=== PATIENT | male | born 1950 | race Caucasian/White ===

== ENCOUNTER 2023-09-26 10:49 | Emergency (ER) | payer OTHER, SELFPAY ==
--- NOTE | 2023-09-26 11:33 | ED.GENMED ---
History of Present Illness
General
Chief Complaint: Facial Problem
Source: patient
Exam Limitations: none
Time Seen by Provider: 09/26/23 11:29
Travel History
Have you had any contact with someone who has COVID-19?: No
Do you have any symptoms of coronavirus? Fever > 100 degrees, chills, cough, shortness of breath, sore throat, loss of taste or smell, muscle aches, or headache?: No
History of Present Illness
History of Present Illness:
See MDM
Past History
Past History
ED Past Medical History: None
ED Past Surgical History: None
Social History
Tobacco: Non-smoker
Alcohol: None
Phy Exam
Physical Exam
Physical Exam:
See MDM
Course
Orders/Labs/Results
Orders:
Orders
09/26/23 11:24
Complete Blood Count/With Diff Urgent
Comprehensive Metabolic Panel Urgent
09/26/23 11:32
CT Orbits W/o Iv Contrast Urgent
Comment:
Reason For Exam: swelling and reddness around left eye
Doxycycline [Vibramycin] 100 mg PO NOW STA
Abnormal Lab Results
09/26/23
11:24
RBC 4.40 L 10^6/uL
(4.70-6.10)
MCH 32.0 H pg
(27.0-31.0)
Abs Immat Gran (auto) 0.1 H 10^3/uL
(0-0.05)
Absolute Neuts (auto) 7.2 H 10^3/uL
(1.4-6.5)
Absolute Lymphs (auto) 1.0 L 10^3/uL
(1.2-3.4)
Absolute Monos (auto) 0.7 H 10^3/uL
(0.1-0.6)
Immature Gran % 1.1 H %
(0-0.5)
Neutrophils % 76.8 H %
(42.2-75.2)
Lymphocytes % 10.8 L %
(20.5-51.1)
Glucose 127 H mg/dl
(70-99)
AST 69 H U/L
(17-59)
ALT 84 H U/L
(0-50)
Alkaline Phosphatase 176 H U/L
(38-126)
09/26/23 11:24
09/26/23 11:24
Vital Signs
Initial and Last Documented VS:
Initial Vital Signs
Temp Pulse Resp Pulse Ox
98.0 F 75 16 98
09/26/23 11:04 09/26/23 11:04 09/26/23 11:04 09/26/23 11:04
Last Documented Vital Signs
Temp Pulse Resp Pulse Ox
98.0 F 75 16 98
09/26/23 11:04 09/26/23 11:04 09/26/23 11:04 09/26/23 11:04
MDM/Problems Addressed
Differential Diagnosis Includes:
HPI and MDM Narrative:
73-year-old male presenting with swelling and tenderness to left face around left eye. Patient was placed on Augmentin by his primary care doctor. Patient states his fevers have resolved. His sinus congestion has resolved and his ear pain has
resolved. The concern is the persistent swelling around his left eye. He denies any visual complaints or pain with eye movement
Given his ongoing symptoms, will transition to doxycycline. I did suggest admission for failure of outpatient antibiotics. Patient understands my concerns but wants to go home. Will obtain CT looking for any evidence of orbital cellulitis or
abscess
Physical exam
General: Well appearing and non-toxic
HEENT: protecting airway. Swelling and erythema surrounding left orbit. No proptosis. EOMI. Pupils equal and reactive
Neck: appears supple
CV: No evidence of cyanosis
Resp: No accessory muscle use
Abd: Non-distended
Extremities: No deformities
Neuro: alert
Psych: Normal affect
Skin: Left facial slight
Problems Addressed including Acute and Chronic Conditions affecting care:
1. Periorbital cellulitis
Acuity: acute
Prognosis: stable
Details: Given the persistent nature, will change Augmentin to doxycycline. Will obtain CT to rule out abscess versus orbital cellulitis
Updates
CT negative for abscess. I again suggested admission. Patient acknowledged my concern. He will follow-up with his doctor. Will change Augmentin to doxycycline. Patient given printout of CT report
Differential Diagnosis (but not limited to): Periorbital cellulitis, orbital cellulitis
Testing considered: Blood cultures
Drug therapy (if applicable): OTC meds, please see d/c instruction regarding Rx drugs
Amount and/or Complexity of Data Reviewed
Clinical info obtained from: Patient
External data reviewed: N/A
Labs I independently reviewed (but not limited to): White blood cell count normal
Radiology: The CT scan was personally and independently reviewed. In addition, official CT report reviewed.
Pulse Ox: not hypoxic
EKG independently reviewed: N/A
Sales Administration Manager: N/A
Critical Care: N/A
Risk of Complication:
Social Determinants of health: Good social support
Discussed with other providers: N/A
Escalation of Care includes Admit/Obs: After being observed in the Emergency Department, pt stable for discharge.
Occasional wrong word or 'sound a like' substitutions may have occurred due to the inherent limitations of voice recognition software. Read the chart carefully and recognize, using context, where substitutions have occurred.
*Critical Care Note
Total Time (30-74mins, 75-104mins- exclusive of procedures): Not Applicable
ED Attending Note
-
Portions of this chart may have been created with voice recognition software.� Occasional wrong word or��sound alike� substitutions may have occurred due to the inherent limitations of voice recognition software.
Discharge Plan
Departure
Patient Disposition: Home (Routine Discharge)
Date of Disposition: 09/26/23
Time of Disposition: 13:12
Patient with high blood pressure during this ER visit?: No
Discharge Problem:
Periorbital cellulitis
Instructions: Periorbital Cellulitis
Prescriptions:
New
doxycycline hyclate 100 mg capsule
100 mg PO BID Qty: 20 0RF
Referrals:
Iris Wang MD [Family Provider] -
Activity Restrictions/Additional Instructions:
Please return for any worsening symptoms.
You may return at any time if you have further concerns.
Please follow up with your doctor at the first available appointment, preferably this week.
Please stop your Augmentin. Instead, take doxycycline.
Thank you for choosing [facility].
Interventions
Interventions:
*Risk Screen - Suicide Last Done: 09/26/23 11:39
*General Assessment Last Done: 09/26/23 11:39
*Neglect/Abuse Screening Last Done: 09/26/23 11:39
*ED COVID-19 Vaccine History Last Done: 09/26/23 11:04
ED- Neurological Assessment Last Done: 09/26/23 11:39
ED-Skin Assessment Last Done: 09/26/23 11:39
[2023-09-26 11:34] LABS: % Basophils 0.4 % (0-2); % Eosinophils 3.8 % (0-6); % Immature Granulocytes 1.1 % (0-0.5); % Lymphocytes 10.8 % (20.5-51.1); % Monocytes 7.1 % (1.7-9.3); % Neutrophils 76.8 % (42.2-75.2); Absolute Eosinophils 0.4 10^3/uL (0-0.7); Absolute Immature Granulocytes 0.1 10^3/uL (0-0.05); Absolute Monocytes 0.7 10^3/uL (0.1-0.6); Absolute Neutrophils 7.2 10^3/uL (1.4-6.5); Hemoglobin 14.1 g/dL (13.0-18.0); Mean Corp Hgb Conc. 35.3 g/dL (33.0-37.0); Mean Corpuscular Volume 90.9 fL (80.0-94.0); Mean Platelet Volume 9.3 fL (7.4-10.4); Nucleated Red Blood Cells % 0 % (-); Platelet Count 226 10^3/uL (130-400); White Blood Cell Count 9.4 10^3/uL (4.8-10.8)
[2023-09-26 11:39] VITALS: BMI 29.5
[2023-09-26] MEDS: VIBRAMYCIN 100 MG PO (11:44)
[2023-09-26 11:54] LABS: ALT (SGPT) 84 U/L (0-50); AST (SGOT) 69 U/L (17-59); Albumin 3.9 g/dl (3.5-5.0); Alkaline Phosphatase 176 U/L (38-126); Blood Urea Nitrogen 13 mg/dl (9-20); Carbon Dioxide 29 mmol/L (22-30); Chloride 101 mmol/L (98-107); Estimated Creatinine Clearance 72 ml/min; Glucose 127 mg/dl (70-99); Potassium 4.1 mmol/L (3.5-5.1); Sodium 136 mmol/L (135-145); Total Bilirubin 1.1 mg/dl (0.2-1.3); Total Protein 6.9 g/dl (6.3-8.2); eGFR > 60.00
[2023-09-26 13:18] VITALS: BP 132/62
--- NOTE | 2023-09-26 13:19 | EDRN ---
REviewed discharge instructions with patient. Verbalized understanding. Ambulated with steady gait to the lobby.
[2023-09-26 13:20] VITALS: BP 132/62
== END 2023-09-26 13:21 | disposition home or self-care (01) ==
LOC: EMR 10:49
PROVIDERS: EMERGENCY PHYSICIAN Student in an Organized Health Care Education/Training Program; FAMILY PHYSICIAN Family Medicine
DX: L03.213 Periorbital cellulitis (principal)
CPT/HCPCS: 99284; 70480; 80053; 85025

== ENCOUNTER → 2025-01-15 08:17 | Outpatient (REF) | payer OTHER, SELFPAY ==
[2025-01-15 09:19] LABS: % Basophils 0.7 % (0-2); % Eosinophils 4.9 % (0-6); % Immature Granulocytes 0.2 % (0-0.5); % Lymphocytes 32.1 % (20.5-51.1); % Monocytes 8.9 % (1.7-9.3); % Neutrophils 53.2 % (42.2-75.2); Absolute Eosinophils 0.2 10^3/uL (0-0.7); Absolute Lymphocytes 1.3 10^3/uL (1.2-3.4); Absolute Monocytes 0.4 10^3/uL (0.1-0.6); Absolute Neutrophils 2.2 10^3/uL (1.4-6.5); Hematocrit 43.5 % (39.0-52.0); Hemoglobin 15.3 g/dL (13.0-18.0); Mean Corp Hgb Conc. 35.2 g/dL (33.0-37.0); Mean Corpuscular Hgb 32.3 pg (27.0-31.0); Mean Platelet Volume 10.1 fL (7.4-10.4); Nucleated Red Blood Cells % 0 % (-); Platelet Count 160 10^3/uL (130-400); Red Blood Cell Count 4.73 10^6/uL (4.70-6.10); Red Cell Dist. Width 12.7 % (11.5-14.5); White Blood Cell Count 4.1 10^3/uL (4.8-10.8)
[2025-01-15 13:19] LABS: ALT (SGPT) 38 U/L (0-50); AST (SGOT) 33 U/L (17-59); Albumin 4.6 g/dl (3.5-5.0); Alkaline Phosphatase 62 U/L (38-126); Blood Urea Nitrogen 15 mg/dl (9-20); Calcium 9.4 mg/dl (8.4-10.2); Carbon Dioxide 28 mmol/L (22-30); Chloride 107 mmol/L (98-107); Glucose 116 mg/dl (70-99); Potassium 4.8 mmol/L (3.5-5.1); Sodium 142 mmol/L (135-145); Total Bilirubin 0.8 mg/dl (0.2-1.3); Total Protein 7.3 g/dl (6.3-8.2); eGFR > 60.00
== END ==
LOC: RCS 08:17
PROVIDERS: ATTENDING PHYSICIAN Surgery Plastic and Reconstructive Surgery; FAMILY PHYSICIAN Family Medicine
DX: Z01.818 Encounter for other preprocedural examination (principal)
CPT/HCPCS: 36415; 80053; 85025; 93005